=== PATIENT | male | born 1990 | race Caucasian/White ===

== ENCOUNTER 2022-07-20 08:44 | Emergency (ER) | payer BC, SELFPAY ==
[2022-07-20] MEDS ORDERED: Dexamethasone 4 MG TAB ONE (09:58)
[2022-07-20] MEDS ORDERED: Lidocaine 1% w/Epinephrine 1:100K 20 ML VIAL ONE (10:09)
[2022-07-20] MEDS ORDERED: Ketorolac Tromethamine 30 MG/ML VIAL ONE (10:09)
== END 2022-07-20 15:33 | disposition home or self-care (01) ==
LOC: ERS 08:44
DX: L02.11 Cutaneous abscess of neck (principal); I10 Essential (primary) hypertension; F17.220 Nicotine dependence, chewing tobacco, uncomplicated
CPT/HCPCS: 10060; 96372; J1885; J8540